=== PATIENT | female | born 2000 | race Caucasian/White ===

== ENCOUNTER 2020-04-16 | Inpatient (IN) | payer BC | END 2020-04-21 15:36 | disposition home or self-care (01) | DRG 690 | PROVIDERS: ADMIT Internal Medicine | DX: N12 Tubulo-interstitial nephritis, not specified as acute or chronic (principal); K59.00 Constipation, unspecified; F12.10 Cannabis abuse, uncomplicated; F17.210 Nicotine dependence, cigarettes, uncomplicated; M54.5 Low back pain; M53.3 Sacrococcygeal disorders, not elsewhere classified; R59.0 Localized enlarged lymph nodes; E55.9 Vitamin D deficiency, unspecified; Z71.51 Drug abuse counseling and surveillance of drug abuser; Z88.0 Allergy status to penicillin; Z88.8 Allergy status to other drugs, medicaments and biological substances ==